=== PATIENT | female | born 1970 | race Caucasian/White ===

== ENCOUNTER 2016-07-20 19:11 | Emergency (ER) | payer OTHER ==
[~2016-07-20] VITALS: Ht 160 cm; Wt 49.9 kg
[2016-07-20 19:30] VITALS: BP 153/91
[2016-07-20] MEDS ORDERED: MULTI-DAY VITA1 EACH PO (20:05)
--- NOTE | 2016-07-20 20:36 | ED GI/GU/ABDOMINAL COMPLAINT ---
History of Present Illness General Chief Complaint: General Adult Stated Complaint: "THINK I HAVE A HERNIA" PER PT Source: patient Exam Limitations: no limitations Vital Signs & Intake/Output Vital Signs & Intake/Output Vital Signs Date Time Temp Pulse Resp B/P Pulse O2 O2 Flow FiO2 Ox Delivery Rate 07/20 1930 98.2 103 18 153/91 95 Room Air ED Intake and Output 07/21 0000 07/20 1200 Intake Total Output Total Balance Patient 110 lb Weight Allergies Coded Allergies: No Known Allergies (07/20/16) Reconcile Medications Multivitamin (Multi-Day Vitamins) 1 EACH TABLET 1 TAB PO DAILY SUPPLEMENT ( Reported) Triage Note: PT TO TRIAGE WITH LLQ ABDOMINAL PAIN ON/OFF 08/12 FOR A YEAR. PT DENIES ANY PAIN AT THIS TIME, DENIES N/V/D, BM REGULAR AND WNL, DENIES URINARY S/S. PT REPORTS SMALL BUMP TO AREA AND PT THINK IT MIGHT BE A HERNIA. VSS. Triage Nurses Notes Reviewed? yes ? n Is pt currently ? No Onset: Abrupt Duration: months Timing: recent history Location: left lower abdomen/groin Radiation: no radiation Activities at Onset: none No Modifying Factors: none HPI: 46-year-old female comes into emergency room for evaluation of left lower abdominal pain has been going on intermittently for the past year as well as the feeling of a bulge on left side of abdomen. Denies any fever chills vomiting. Denies any vaginal discharge or urinary symptoms. Pain will radiate to lower back at times. Patient reports that she came in to be evaluated for because the pain was worse over the past couple days. Denies any blood or stool. Some softer stool in general. Denies any other associated symptoms. (ELLA LEAL) Past History Travel History Traveled to [place] past 21 day No Medical History Any Pertinent Medical History? none Surgical History Surgical History: appendectomy Psychosocial History What is your primary language French Tobacco Use: Never used Family History Hx Contributory? No (ELLA LEAL) Review of Systems Review of Systems Constitutional: Reports: no symptoms. EENTM: Reports: no symptoms. Respiratory: Reports: no symptoms. Cardiovascular: Reports: no symptoms. GI: Reports: see HPI. Genitourinary: Reports: no symptoms. Musculoskeletal: Reports: no symptoms. Skin: Reports: no symptoms. Neurological/Psychological: Reports: no symptoms. Hematologic/Endocrine: Reports: no symptoms. Immunologic/Allergic: Reports: no symptoms. All Other Systems: Reviewed and Negative (ELLA LEAL) Physical Exam Physical Exam General Appearance: well developed/nourished, no apparent distress, alert Head: atraumatic, normal appearance Eyes: Bilateral: normal appearance, EOMI. Ears, Nose, Throat, Mouth: hearing grossly normal, moist mucous membrane Neck: normal inspection, full range of motion Respiratory: normal breath sounds, no respiratory distress Cardiovascular: regular rate/rhythm Gastrointestinal: normal bowel sounds, soft, small bulge appreciated in left groin when patient coughs, no palpable defect and abdominal lining Back: normal inspection Extremities: normal range of motion Neurologic/Psych: awake, alert, oriented x 3, normal gait Skin: intact, normal color Core Measures ACS in differential dx? No Severe Sepsis Present: No Septic Shock Present: No (ELLA LEAL) Progress Differential Diagnosis: colon cancer, diverticulitis, ectopic , hernia, ovarian cyst, ovarian torsion, PID/cervicitis, perforated viscous, SBO, UTI/ pyelo Plan of Care: Orders Procedure Date/time Status URINE 07/20 2017 Complete URINALYSIS 07/20 2017 Complete COMPREHENSIVE METABOLIC PANEL 07/20 2017 Complete CBC WITHOUT DIFFERENTIAL 07/20 2017 Complete Laboratory Tests 07/20/162032: Urine Color YEL, Urine Clarity CLEAR, Urine pH 7.0, Ur Specific [place] 1.010, Urine Protein NEG, Urine Ketones NEG, Urine Nitrite NEG, Urine Bilirubin NEG, Urine Urobilinogen 0.2, Ur Leukocyte Esterase NEG, Ur Microscopic SEDIMENT EXAMINED, Urine RBC 3-5, Ur Epithelial Cells RARE, Urine Hemoglobin SMALL H, Urine Glucose NEG, Urine Test NEGATIVE 07/20/162027: Anion Gap 12, Estimated GFR > 60, BUN/Creatinine Ratio 18.6, Glucose 102 H, Calcium 9.9, Total Bilirubin 0.4, AST 18, ALT 28, Alkaline Phosphatase 49, Total Protein 7.8, Albumin 4.7, Globulin 3.1, Albumin/Globulin Ratio 1.5, CBC w Diff NO MAN DIFF REQ, RBC 4.45, MCV 89.2, MCH 29.2, RDW 13.4, MPV 8.7, Gran % 55.0, Lymphocytes % 33.7, Monocytes % 7.1, Eosinophils % 3.0, Basophils % 1.2, Absolute Granulocytes 5.1, Absolute Lymphocytes 3.1, Absolute Monocytes 0.7 H, Absolute Eosinophils 0.3, Absolute Basophils 0.1, PUBS MCHC 32.8 L Diagnostic Imaging: Viewed by Me: CT Scan. Discussed w/RAD: CT Scan. Radiology Impression: SERVICE DATE: 07/20/16 EXAM TYPE: CAT - CT ABD & PELVIS W IV CONTRAST EXAMINATION: CT ABDOMEN AND PELVIS WITH CONTRAST CLINICAL INFORMATION: Left lower quadrant pain. COMPARISON: None. TECHNIQUE: Contiguous axial thin section helical images of the abdomen and pelvis were performed following the administration of 95 mL of intravenous Optiray 320. The data set was reformatted in the coronal and sagittal planes and reviewed on an independent workstation. DLP: 247 mGy-cm. FINDINGS: The visualized lung bases are clear. The visualized portions of the heart are unremarkable. The liver is of normal size and attenuation without focal lesions nor intrahepatic biliary ductal dilation. A normal gallbladder is identified. There is no wall thickening or discernible pericholecystic fluid. The spleen, pancreas, adrenal glands are unremarkable. Both kidneys are of normal size and attenuation without hydronephrosis or nephrolithiasis. Following the administration of IV contrast, prompt symmetric nephrograms are displayed. There is no abdominal free fluid. There is neither mesenteric nor retroperitoneal lymphadenopathy. Normal unopacified loops of small and large bowel are identified. There is no pelvic free fluid. The urinary bladder is unremarkable. There is neither pelvic nor inguinal lymphadenopathy. There are complicated left ovarian cyst present. The largest measures 17 mm. Bone windows: Neither sclerotic nor lytic bone lesions are identified. IMPRESSION: No evidence for acute abdominal or pelvic inflammatory or infectious processes. Complicated left ovarian cyst. Consider correlation with pelvic ultrasound if deemed clinically appropriate. DICTATED BY : BARB ROBERTS MD DATE/TIME DICTATED:07/20/162133 BLOOD BANK BOOKING CLERK:ELIER DATE/TIME TRANSCRIBED:07/20/162133 Initial ED EKG: none (ELLA LEAL) Departure Departure Disposition: HOME OR SELF CARE Condition: Stable Clinical Impression Primary Impression: Ovarian cyst Secondary Impressions: Abdominal pain Referrals: PATIENT HAS NO PRIMARY CARE DR (PCP/Family) Additional Instructions: Follow-up with your SENIOR SOFTWARE ENGINEER doctor. Follow-up with Dr. Koenig for evaluation of possible hernia). Take Motrin at home as needed for pain. Return if any other concerns worsening symptoms. Follow-up with your primary care physician this week. Return to the emergency room at any time sooner if you have worsening of your symptoms or any other concerns. Please note that there might be incidental findings in your evaluation that are unrelated to the current emergency department visit. Please notify your primary care doctor about this emergency department visit in order to obtain and review all of the testing performed so that these incidental findings can be monitored as needed. If you were prescribed a narcotic use caution as this medication is highly addictive and will make you drowsy use for breakthrough pain only. No driving, drinking alcohol or operating machinary when taking. If you had an x-ray performed, please understand that some fractures may not be seen on the initial set of x-rays. If your symptoms persist you might need a repeat set of x-rays to check for such a fracture. If you had a laceration evaluated, please understand that foreign bodies such as glass or wood may not be visible to the naked eye or on plain x-rays. If the wound becomes red, swollen, increasingly more painful or if there is any drainage from the wound, please have it reevaluated by a physician for the possibility of a retained foreign body. Departure Forms: Customer Survey General Discharge Information Comments 07/20/2016 11:15:11 PM Patient clinically looks well. Nontoxic appearing. In no apparent distress. No acute abdomen. Symptoms of burning going on for over a year. Patient referred to her SENIOR SOFTWARE ENGINEER doctor. [facility] in [place]. He should also referred to general surgery for possible hernia although the fact that the CAT scan shows positive ovarian cyst symptoms are likely most consistent with ovarian cyst as opposed to hernia. There was a small bulge appreciated in the left lower abdomen when patient coughed. There is a hernia there is no signs of incarceration or strangulation and it is completely reducible. (ELLA LEAL) PA/CUSTOMER ACCOUNT MANAGER Co-Sign Statement Statement: ED Attending supervision documentation- [] I saw and evaluated the patient. I have also reviewed all the pertinent lab results and diagnostic results. I agree with the findings and the plan of care as documented in the PA's/CUSTOMER ACCOUNT MANAGER's documentation. [X] I have reviewed the ED Record and agree with the PA's/CUSTOMER ACCOUNT MANAGER's documentation. [] Additions or exceptions (if any) to the PAs/CUSTOMER ACCOUNT MANAGER's note and plan are summarized below: [] (CHELSIE TOTH DO)
[2016-07-20 20:40] LABS: ABSOLUTE BASOPHIL COUNT 0.1 /CUMM (0.0-0.2); ABSOLUTE EOSINOPHIL COUNT 0.3 /CUMM (0.0-0.7); ABSOLUTE GRANULOCYTE CT 5.1 /CUMM (1.4-6.5); ABSOLUTE LYMPH COUNT 3.1 /CUMM (1.2-3.4); ABSOLUTE MONOCYTE COUNT 0.7 /CUMM (0.10-0.60); BASOPHIL % 1.2 % (0.0-2.0); HEMATOCRIT 39.7 % (37-47); MEAN CORPUSCULAR HGB 29.2 PG (27.0-31.0); MEAN CORPUSCULAR HGB CONC 32.8 G/DL (33.0-37.0); MEAN CORPUSCULAR VOLUME 89.2 FL (81.0-99.0); MEAN PLATELET VOLUME 8.7 FL (7.4-10.4); PLATELET COUNT 267 /CUMM (130-400); RBC DISTRIBUTION WIDTH 13.4 % (11.5-14.5); RED BLOOD CELL CT 4.45 /CUMM (4.20-5.40); WHITE BLOOD CELL COUNT 9.4 /CUMM (4.8-10.8)
--- NOTE | 2016-07-20 21:41 | CT SCAN REPORT ---
EXAMINATION: CT ABDOMEN AND PELVIS WITH CONTRAST CLINICAL INFORMATION: Left lower quadrant pain. COMPARISON: None. TECHNIQUE: Contiguous axial thin section helical images of the abdomen and pelvis were performed following the administration of 95 mL of intravenous Optiray 320. The data set was reformatted in the coronal and sagittal planes and reviewed on an independent workstation. DLP: 247 mGy-cm. FINDINGS: The visualized lung bases are clear. The visualized portions of the heart are unremarkable. The liver is of normal size and attenuation without focal lesions nor intrahepatic biliary ductal dilation. A normal gallbladder is identified. There is no wall thickening or discernible pericholecystic fluid. The spleen, pancreas, adrenal glands are unremarkable. Both kidneys are of normal size and attenuation without hydronephrosis or nephrolithiasis. Following the administration of IV contrast, prompt symmetric nephrograms are displayed. There is no abdominal free fluid. There is neither mesenteric nor retroperitoneal lymphadenopathy. Normal unopacified loops of small and large bowel are identified. There is no pelvic free fluid. The urinary bladder is unremarkable. There is neither pelvic nor inguinal lymphadenopathy. There are complicated left ovarian cyst present. The largest measures 17 mm. Bone windows: Neither sclerotic nor lytic bone lesions are identified. IMPRESSION: No evidence for acute abdominal or pelvic inflammatory or infectious processes. Complicated left ovarian cyst. Consider correlation with pelvic ultrasound if deemed clinically appropriate.
== END 2016-07-20 22:34 ==
LOC: ERH 19:11
PROVIDERS: Physician Assistant Medical
DX: N83.202 Unspecified ovarian cyst, left side (principal)
CPT/HCPCS: 74177; 81001; 81025

== ENCOUNTER → 2016-08-21 | Day surgery (SDC) | payer OTHER ==
[~2016-08-21] VITALS: Ht 160 cm; Wt 50.8 kg
[~2016-08-21] MED LIST: MULTI-DAY VITA1 EACH PO
--- NOTE | 2016-08-21 10:05 | Operative Report ---
Operative/Inv Procedure Report Surgery Date: 08/21/16 Name of Procedure: Laparoscopic left inguinal hernia repair Pre-Operative Diagnosis: Left inguinal hernia Post-Operative Diagnosis: Same Estimated Blood Loss: scant Surgeon/Excelsior Picker: PEDRO LAZO,JARON Leyva/Lydia BRAVO Anesthesia: general endotracheal tube Implants: Parietex mesh Operative/Procedure Note Note: After consent patient is brought to the operating room laid supine. General anesthesia was obtained and the abdomen was prepped and draped. Skin was anesthetized with local anesthesia and a transverse infraumbilical incision made sharply. We identified the rectus fascia and incised transversely. Stay sutures were placed. Rectus muscle was retracted laterally and a dissecting balloon placed posterior to it. It was inflated under direct vision the camera and replaced with a blunt Mora port. Gas was instilled. 2, 5 mm ports were placed in the infraumbilical midline after local anesthesia was instilled and under direct vision and camera. Began our dissection at the pubis and delineated the symphysis. Singh's ligament was identified and cleared. Then dissected laterally and developed the iliopubic tract. There is a moderate sized indirect hernia containing preperitoneal fat. Cord lipoma was then delivered and reflected inferiorly. The round ligament were circumferentially dissected and then divided with electrocautery. Once the dissection was completed a left-sided piece of Parietex mesh was placed in the cavity. It was placed over the internal ring and cover the femoral and direct spaces as well. It was tacked medially along Singh's ligament and superior medially. Gas was allowed to escape on maintaining proper orientation of the mesh. The fascia was closed with 0 Vicryl suture. Skin incisions closed with 4-0 Vicryl. Steri- Strips and sterile dressing applied. Sponge and needle counts are correct. Findings: Indirect CC: CARINA SHANNON APRN
== END ==
LOC: STS 01:05
DX: K40.90 Unilateral inguinal hernia, without obstruction or gangrene, not specified as recurrent (principal)
CPT/HCPCS: 81025; C1781; J0131; J0690; J2250